=== PATIENT | female | born 1995 | race Caucasian/White ===

== ENCOUNTER 2021-07-09 12:27 | Emergency (ER) | payer OTHER, SELFPAY ==
[2021-07-09 12:50] VITALS: BP 102/80; PULSE 80; RESP 18; TEMP 36.8; O2SAT 100
--- NOTE | 2021-07-09 14:20 | ED.URI ---
HPI - URI/Sore Throat General Chief Complaint: Upper Respiratory Infection Stated Complaint: congestion headache achey Source: patient and RN notes reviewed Mode of arrival: ambulatory History of Present Illness HPI Narrative: This is a 26-year-old female presented to urgent care after being exposed to her Covid positive daughter has sick started to experience shortness of breath, congestion, cough nonproductive and no taste or smell with a headache. The patient denies , CP, palpitation, extremity numbness, lightheadedness, dizziness, constipation, diarrhea, chills, or fever. Related Data Allergies Allergy/AdvReac Type Severity Reaction Status Date / Time No Known Allergies Allergy Unknown Verified 02/05/17 00:02 Review of Systems Review of Systems: A 14 organ system Review of Systems was performed and pertinent positives included in the HPI, otherwise remaining ROS is negative. Exam Narrative: GENERAL: This is a well-nourished, well-developed patient, in no apparent distress. HEAD: normocephalic, atraumatic. EYES: PERRL. Sclera clear/white. Vision is grossly intact. EARS: External ears normal, auditory canals clear and without drainage, TMs normal without perforation. Hearing grossly intact. NOSE: External nose normal with no obvious nasal discharge, nares without redness, no rhinorrhea. THROAT: Mucous membranes moist, posterior pharynx clear. NECK: Neck supple, non-tender without lymphadenopathy, masses or thyromegaly. CARDIOVASCULAR: Regular rate and rhythm without murmurs, gallops, or rubs. RESPIRATORY: Clear to auscultation. Breath sounds equal bilaterally. No wheezes, rales, or rhonchi. GASTROINTESTINAL: Abdomen soft, non-tender, nondistended. Bowel sounds are active. No hepato-splenomegaly, or palpable masses. No guarding. SKIN: warm, intact with no suspicious lesions or rash, good texture and turgor. NEURO: awake, alert, and oriented to person, place and time. There were no obvious focal neurologic abnormalities. Steady gait EXTREMITIES: Normal range of motion. No edema. No calf tenderness. Negative Homans sign bilaterally. BACK: Nontender without deformity or crepitance. No flank tenderness. Course Course Emergency Course: Patient will discharge home with Tessalon Perles, guaifenesin, Flonase, Claritin and albuterol Vital Signs Vital signs: Vital Signs Temperature 98.3 F 07/09/21 12:50 Pulse Rate 80 07/09/21 12:50 Respiratory Rate 18 07/09/21 12:50 Blood Pressure 102/80 07/09/21 12:50 Pulse Oximetry 100 07/09/21 12:50 Temperature 98.3 F 07/09/21 12:50 Pulse Rate 80 07/09/21 12:50 Respiratory Rate 18 07/09/21 12:50 Blood Pressure 102/80 07/09/21 12:50 Pulse Oximetry 100 07/09/21 12:50 MDM - URI/Sore Throat Differential Diagnosis Differential diagnosis: Likely upper respiratory infection, sinusitis, viral infection and bronchitis Discharge Plan Discharge Clinical Impression: Viral infection Patient Disposition: Home, Self-Care Condition: Stable Instructions: Antibiotic Form, Viral Syndrome (ED) Additional Instructions: This is likely viral illness, no antibiotic is needed at this time. Treatment is aimed toward your specific symptoms. You must treat your symptoms in order to feel better while the virus runs it's course. Recommend antihistamine such as Benadryl at night time and Claritin/Zyrtec/Edyta during the day Use inhaler as needed for cough, wheezing, shortness of breath or chest tightness. -Hot steamy showers in the morning to help open up your sinuses -Hot tea with lemon and honey. A teaspoon of honey may help as a cough suppressant. -Increase fluid intake Frequent hand washing or hand barrel driller is one of the best ways to prevent spread of infection. Please schedule a followup visit with your personal physician for further evaluation and treatment within 3-5days. Including recheck and discussion of your blood pressure. If your symptoms persist, change or wo
== END 2021-07-09 14:36 | disposition home or self-care (01) ==
PROVIDERS: Emergency Provider Nurse Practitioner
DX: B34.9 Viral infection, unspecified (principal); Z20.822 Contact with and (suspected) exposure to COVID-19
CPT/HCPCS: 99203; G0463